=== PATIENT | male | born 1970 | race American Indian/Alaskan Native ===

== ENCOUNTER 2018-03-29 09:23 | Emergency (ER) | payer SELFPAY ==
[2018-03-29 09:33] VITALS: BP 139/88
--- NOTE | 2018-03-29 11:07 | Emergency Department Report ---
Blank Doc - Documentation Documentation: Patient is a 47-year-old male who is presenting with 3 months of headache. She states he has some blurry vision or headache fatigue and patient is worried that he may be severely ill. Patient will have a CT of the head to rule out acute abnormality and electrolytes we done as well.
[2018-03-29 11:18] LABS: Basophils # (Auto) 0.1 K/mm3 (0.0-0.1); Basophils % (Auto) 1.1 % (0.0-1.8); Eosinophils # (Auto) 0.3 K/mm3 (0.0-0.4); Eosinophils % (Auto) 6.9 % (0.0-4.3); Hematocrit 47.3 % (35.5-45.6); Hemoglobin 16.2 gm/dl (11.8-15.2); Lymphocytes # (Auto) 1.9 K/mm3 (1.2-5.4); Lymphocytes % (Auto) 38.8 % (13.4-35.0); Mean Corpuscular HGB Conc 34 % (32-34); Mean Corpuscular Hemoglobin 28 pg (28-32); Mean Corpuscular Volume 82 fl (84-94); Monocytes # (Auto) 0.5 K/mm3 (0.0-0.8); Monocytes % (Auto) 10.8 % (0.0-7.3); Platelet Count 223 K/mm3 (140-440); Red Blood Count 5.76 M/mm3 (3.65-5.03); Red Cell Distribution Width 15.1 % (13.2-15.2)
--- NOTE | 2018-03-29 11:32 | Cat Scan Report ---
CT HEAD WITHOUT CONTRAST: HISTORY: Headache. TECHNIQUE: Sequential 2.5mm CT images. COMPARISON: none. FINDINGS: Cerebral Parenchyma: Within normal limits. Cerebellum: Within normal limits. Brainstem: Within normal limits. Ventricles: Normal. Sella: Normal. Extra-axial spaces: Normal. Basal Cisterns: Normal. Intracranial Hemorrhage: None. Midline Shift: None. Calvarium: Normal. Sinuses: Normal. Mastoid Air Cells: Normal. Visualized Orbits: Normal. IMPRESSION: Cranial CT scan within normal limits.
[2018-03-29 11:35] LABS: BUN/Creatinine Ratio 14; Blood Urea Nitrogen 14 mg/dL (9-20); Calcium 9.3 mg/dL (8.4-10.2); Hemolysis Index 20
[2018-03-29] MEDS ORDERED: MOTRIN PO ONE (11:59)
--- NOTE | 2018-03-29 12:08 | Emergency Department Report ---
ED Headache HPI - General Chief Complaint: Headache Stated Complaint: HEADACHE Time Seen by Provider: 03/29/18 10:39 - History of Present Illness Initial Comments: 47-year-old -[place] male comes in complaining of a headache and pain around his eyes and eye irritation such as burning in watery eyes. Patient reports this been going on for 3 months. He reports his pain taking Tylenol with no relief no relief is with his Claritin that he reports he takes intermittently. He complains of intermittent blurred vision with fatigue at times. He has a past medical history of hypertension currently takes lisinopril and hydrochlorothiazide 10/12 0.5 mg. He is followed by Dr. Danny Mcintosh she has not seen in a while. He does admit to nasal congestion runny nose runny eyes and itchy eyes reports that his equilibrium is off at times. Timing/Duration: constant, other (3 months) Quality: mild Head Injury Location: frontal Recent Head Trauma: no recent headache/trauma, occasional headaches Associated Symptoms: fatigue, nasal congestion, nasal drainage, vision changes Allergies/Adverse Reactions: Allergies No Known Allergies Allergy (Unverified 08/28/14 10:46) ED Review of Systems ROS: Stated complaint: HEADACHE Other details as noted in HPI Constitutional: denies: chills, fever Eyes: eye pain, eye discharge, vision change ENT: congestion (nasal congestion), other (rhinorrhea) Respiratory: denies: cough, shortness of breath, wheezing Cardiovascular: denies: chest pain, palpitations Endocrine: no symptoms reported Gastrointestinal: denies: abdominal pain, nausea, diarrhea Genitourinary: denies: urgency, dysuria Musculoskeletal: denies: back pain, joint swelling, arthralgia Skin: denies: rash, lesions Neurological: headache Psychiatric: denies: anxiety, depression Hematological/Lymphatic: denies: easy bleeding, easy bruising ED Past Medical Hx - Past Medical History Previous Medical History?: Yes Hx Hypertension: Yes Additional medical history: allergies - Surgical History Past Surgical History?: No - Social History Smoking Status: Never Smoker Substance Use Type: Prescribed ED Physical Exam - General Limitations: No Limitations General appearance: alert, in no apparent distress - Head Head exam: Present: atraumatic, normocephalic - Eye Eye exam: Present: normal appearance - ENT ENT exam: Present: mucous membranes moist - Neck Neck exam: Present: normal inspection - Respiratory Respiratory exam: Present: normal lung sounds bilaterally. Absent: respiratory distress - Cardiovascular Cardiovascular Exam: Present: regular rate, normal rhythm. Absent: systolic murmur, diastolic murmur, rubs, gallop - GI/Abdominal GI/Abdominal exam: Present: soft, normal bowel sounds - Rectal Rectal exam: Present: deferred - Extremities Exam Extremities exam: Present: normal inspection - Back Exam Back exam: Present: normal inspection - Neurological Exam Neurological exam: Present: alert, oriented X3 - Psychiatric Psychiatric exam: Present: normal affect, normal mood - Skin Skin exam: Present: warm, dry, intact, normal color. Absent: rash ED Course Vital Signs 03/29/18 09:29 Temperature 98.8 F Pulse Rate 106 H Respiratory 18 Rate Blood Pressure 139/88 O2 Sat by Pulse 98 Oximetry ED Medical Decision Making - Lab Data Result diagrams: 03/29/18 11:06 03/29/18 11:06 - Radiology Data Radiology results: report reviewed, image reviewed FINDINGS: Cerebral Parenchyma: Within normal limits. Cerebellum: Within normal limits. Brainstem: Within normal limits. Ventricles: Normal. Sella: Normal. Extra-axial spaces: Normal. Basal Cisterns: Normal. Intracranial Hemorrhage: None. Midline Shift: None. Calvarium: Normal. Sinuses: Normal. Mastoid Air Cells: Normal. Visualized Orbits: Normal. IMPRESSION: Cranial CT scan within normal limits. Transcribed By: TTR Dictated By: CRISTINA GRECO JR, MD Electronically Authenticated By: CRISTINA GRECO JR, MD Signed Date/Time: 03/29/18 112 DD/ 112 TD/TT: 03/29/18 1123 Critical care attestation.: If time is entered above; I have spent that time in minutes in the direct care of this critically ill patient, excluding procedure time. ED Disposition Clinical Impression: Frequent headaches Allergic rhinitis Qualifiers: Allergic rhinitis trigger: unspecified Allergic rhinitis seasonality: seasonal Qualified Code(s): J30.2 - Other seasonal allergic rhinitis Disposition: - TO HOME OR SELFCARE Is pt being admited?: No Does the pt Need Aspirin: No Condition: Stable Instructions: Allergic Rhinitis (ED), Acute Headache (ED) Additional Instructions: Please take your Claritin on a daily basis. You can add a small dose of Sudafed with the to help with decongestion. He is very important for him to follow up to primary care provider if symptoms persist or gets worse. Referrals: PRIMARY CARE, [Primary Care Provider] - 3-5 Days BRANDO MCINTOSH MD [Referring] - 3-5 Days YESSENIA AMARO MD [Staff Physician] - 3-5 Days RYANNE PRICE MD [Staff Physician] - 3-5 Days Forms: Work/School Release Form(ED)
== END 2018-03-29 12:44 | disposition home or self-care (01) ==
LOC: ED 09:23
DX: J30.9 Allergic rhinitis, unspecified (principal); I10 Essential (primary) hypertension
CPT/HCPCS: 36415; 70450; 80048; 82962; 85025; 99284

== ENCOUNTER 2019-05-16 22:02 | Emergency (ER) | payer SELFPAY ==
--- NOTE | 2019-05-16 22:12 | Event Note ---
ED Screening Note ED Screening Note: sinus congestion. saw pcp without relief This initial assessment/diagnostic orders/clinical plan/treatment(s) is/are subject to change based on patients health status, clinical progression and re- assessment by fellow clinical providers in the ED. Further treatment and workup at subsequent clinical providers discretion. Patient/guardian urged not to elope from the ED as their condition may be serious if not clinically assessed and managed. Initial orders include:
--- NOTE | 2019-05-17 02:29 | Emergency Department Report ---
ED ENT HPI - General Chief complaint: Upper Respiratory Infection Stated complaint: MICHAEL/NASAL CONGESTION Time Seen by Provider: 05/16/19 22:11 Source: patient Mode of arrival: Ambulatory Limitations: No Limitations - History of Present Illness Initial comments: 49-year-old -Citizen Of [place] male presents to the Emergency department. Complaining of reemerging Chronic sinusitis. This most recent episode began a several days ago days ago, has been continuously calls pain, nasal congestion and occasional mild ear pressure. Reports no fever, chills, sweats. No chest pain or palpitations. He was seen by an emergency department. We'll prescribe a metabolic a primary care provider who prescribed another round of antibodies, both at 2 weeks. Is not is seen in nose and throat specialists. States that his nose feels very dry with breathing. 3 MD complaint: other -: Gradual, Sudden Location: nose Severity: moderate Quality: dull Improves with: none Worsens with: none Associated Symptoms: denies: gum swelling, toothache, sore throat, tinnitus, rhinorrhea - Related Data Home Medications Medication Instructions Recorded Confirmed Last Taken Buspirone HCl [busPIRone] 7.5 mg PO BID 05/16/19 05/16/19 Unknown Doxazosin [Cardura] 8 mg 05/16/19 05/16/19 amLODIPine [Norvasc] 10 mg 05/16/19 05/16/19 Previous Rx's Medication Instructions Recorded Last Taken Type Amoxicillin/Potassium Clav 1 each PO BID #42 tablet 05/17/19 Unknown Rx [Augmentin 875-125 Tablet] Fluticasone [Flonase] 1 spray NS QDAY #1 bottle 05/17/19 Unknown Rx Olopatadine HCl [Patanase] 30.5 gm NS DAILY #1 spray.pump 05/17/19 Unknown Rx predniSONE [Deltasone] 50 mg PO QDAY #5 tab 05/17/19 Unknown Rx traMADol [Ultram] 50 mg PO Q6HR PRN #10 tablet 05/17/19 Unknown Rx Allergies Allergy/AdvReac Type Severity Reaction Status Date / Time No Known Allergies Allergy Verified 05/16/19 22:09 ED Dental HPI - General Chief complaint: Upper Respiratory Infection Stated complaint: MICHAEL/NASAL CONGESTION Time Seen by Provider: 05/16/19 22:11 Source: patient Mode of arrival: Ambulatory Limitations: No Limitations - Related Data Home Medications Medication Instructions Recorded Confirmed Last Taken Buspirone HCl [busPIRone] 7.5 mg PO BID 05/16/19 05/16/19 Unknown Doxazosin [Cardura] 8 mg 05/16/19 05/16/19 amLODIPine [Norvasc] 10 mg 05/16/19 05/16/19 Previous Rx's Medication Instructions Recorded Last Taken Type Amoxicillin/Potassium Clav 1 each PO BID #42 tablet 05/17/19 Unknown Rx [Augmentin 875-125 Tablet] Fluticasone [Flonase] 1 spray NS QDAY #1 bottle 05/17/19 Unknown Rx Olopatadine HCl [Patanase] 30.5 gm NS DAILY #1 spray.pump 05/17/19 Unknown Rx predniSONE [Deltasone] 50 mg PO QDAY #5 tab 05/17/19 Unknown Rx traMADol [Ultram] 50 mg PO Q6HR PRN #10 tablet 05/17/19 Unknown Rx Allergies Allergy/AdvReac Type Severity Reaction Status Date / Time No Known Allergies Allergy Verified 05/16/19 22:09 ED Review of Systems ROS: Stated complaint: MICHAEL/NASAL CONGESTION Other details as noted in HPI Constitutional: denies: chills, fever Eyes: denies: eye pain, eye discharge, vision change ENT: congestion. denies: ear pain, throat pain Respiratory: denies: cough, shortness of breath, wheezing Cardiovascular: denies: chest pain, palpitations Endocrine: no symptoms reported Gastrointestinal: denies: abdominal pain, nausea, diarrhea Genitourinary: denies: urgency, dysuria Musculoskeletal: denies: back pain, joint swelling, arthralgia Skin: denies: rash, lesions Neurological: denies: headache, weakness, paresthesias Psychiatric: denies: anxiety, depression Hematological/Lymphatic: denies: easy bleeding, easy bruising ED Past Medical Hx - Past Medical History Previous Medical History?: Yes Hx Hypertension: Yes Additional medical history: allergies - Surgical History Past Surgical History?: No - Social History Smoking Status: Never Smoker Substance Use Type: None - Medications Home Medications: Home Medications Medication Instructions Recorded Confirmed Last Taken Type Buspirone HCl [busPIRone] 7.5 mg PO BID 05/16/19 05/16/19 Unknown History Doxazosin [Cardura] 8 mg 05/16/19 05/16/19 History amLODIPine [Norvasc] 10 mg 05/16/19 05/16/19 History Amoxicillin/Potassium Clav 1 each PO BID #42 tablet 05/17/19 Unknown Rx [Augmentin 875-125 Tablet] Fluticasone [Flonase] 1 spray NS QDAY #1 bottle 05/17/19 Unknown Rx Olopatadine HCl [Patanase] 30.5 gm NS DAILY #1 spray.pump 05/17/19 Unknown Rx predniSONE [Deltasone] 50 mg PO QDAY #5 tab 05/17/19 Unknown Rx traMADol [Ultram] 50 mg PO Q6HR PRN #10 tablet 05/17/19 Unknown Rx ED Physical Exam - General Limitations: No Limitations General appearance: alert, in no apparent distress - Head Head exam: Present: atraumatic, normocephalic - Eye Eye exam: Present: normal appearance. Absent: PERRL, EOMI, scleral icterus, conjunctival injection Pupils: Present: normal accommodation - ENT ENT exam: Present: mucous membranes moist, other (bilateral nasal congestion and tenderness to percussion to the frontal and maxillary sinuses. Bilateral small swollen nasal turbinates. Small effusion behind the left ear. No lymphadenopathy is appreciated. Posterior pharynx is clear. Normal voice was not muffled. Tongue and uvula midline, normal size.) - Neck Neck exam: Present: normal inspection - Respiratory Respiratory exam: Present: normal lung sounds bilaterally. Absent: respiratory distress - Cardiovascular Cardiovascular Exam: Present: regular rate, normal rhythm. Absent: systolic murmur, diastolic murmur, rubs, gallop - GI/Abdominal GI/Abdominal exam: Present: soft, normal bowel sounds - Rectal Rectal exam: Present: deferred - Extremities Exam Extremities exam: Present: normal inspection - Back Exam Back exam: Present: normal inspection - Neurological Exam Neurological exam: Present: alert, oriented X3 - Psychiatric Psychiatric exam: Present: normal affect, normal mood - Skin Skin exam: Present: warm, dry, intact, normal color. Absent: rash ED Course Vital Signs 05/16/19 05/16/19 05/17/19 22:08 23:41 02:45 Temperature 98.3 F 97.9 F Pulse Rate 106 H 72 Respiratory 18 18 18 Rate Blood Pressure 146/94 Blood Pressure 143/87 [Right] O2 Sat by Pulse 97 100 Oximetry ED Medical Decision Making - Medical Decision Making 41-year-old male with chronic recurrent sinusitis has not yet followed with ENT at discussed with him the need to follow his primary care provider and to obtain a visit with ENT specialist for possible scoping or sinus lavage. Currently no distress. Appears to have a continuing sinusitis. Neurovascularly intact Critical care attestation.: If time is entered above; I have spent that time in minutes in the direct care of this critically ill patient, excluding procedure time. ED Disposition Clinical Impression: Sinusitis Disposition: TO HOME OR SELFCARE Is pt being admited?: No Does the pt Need Aspirin: No Condition: Stable Instructions: Sinusitis (ED), Acute Bacterial Rhinosinusitis (ED) Prescriptions: Amoxicillin/Potassium Clav [Augmentin 875-125 Tablet] 1 each PO BID #42 tablet predniSONE [Deltasone] 50 mg PO QDAY #5 tab Fluticasone [Flonase] 1 spray NS QDAY #1 bottle Olopatadine HCl [Patanase] 30.5 gm NS DAILY #1 spray.pump traMADol [Ultram] 50 mg PO Q6HR PRN #10 tablet PRN Reason: Pain Referrals: [facility] [Provider Group] - 3-5 Days PRIMARY CARE, [Primary Care Provider] - 3-5 Days DAIANA CARPIO MD [Staff Physician] - 3-5 Days
[2019-05-17 02:46] VITALS: BP 143/87
== END 2019-05-17 02:45 | disposition home or self-care (01) ==
LOC: ED 22:02
DX: J01.90 Acute sinusitis, unspecified (principal); I10 Essential (primary) hypertension
CPT/HCPCS: 99282